=== PATIENT | female | born 1995 | race Caucasian/White ===

== ENCOUNTER 2020-09-30 05:00 | Inpatient (IN) | payer OTHER ==
[~2020-09-30] VITALS: Ht 160 cm; Wt 79.4 kg
[2020-09-30] MEDS ORDERED: PRENATAL TABLE1 EAC1 PO (06:33)
[2020-09-30] MEDS ORDERED: ALLEGRA ALLERG180 MG (14:14)
== END 2020-10-02 13:37 | disposition home or self-care (01) | DRG 807 ==
LOC: LDR 05:00 → OB/GYN 15:28
PROVIDERS: ADMIT Obstetrics & Gynecology; ATTEND Obstetrics & Gynecology
PROC: 10E0XZZ Delivery of Products of Conception, External Approach (ICD-10-PCS; principal; 2020-09-30)
PROC: 3E033VJ Introduction of Other Hormone into Peripheral Vein, Percutaneous Approach (ICD-10-PCS; 2020-09-30)
PROC: 4A0HXFZ Measurement of Products of Conception, Cardiac Rhythm, External Approach (ICD-10-PCS; 2020-09-30)
DX: O24.429 Gestational diabetes mellitus in childbirth, unspecified control (principal); Z37.0 Single live birth; Z3A.39 39 weeks gestation of pregnancy; Z20.822 Contact with and (suspected) exposure to COVID-19